=== PATIENT | male | born 1970 | race Caucasian/White ===

== ENCOUNTER 2019-01-15 00:04 | Emergency (ER) | payer OTHER ==
[2019-01-15] MEDS ORDERED: ONDANSETRON 4 MG/2 ML VIAL IVP ONE (00:08)
[2019-01-15] MEDS ORDERED: NS 1,000 ML IV ONE ×2 (00:08→02:39)
--- NOTE | 2019-01-15 00:08 | EDPHY ---
H & P Time Seen by Provider: 01/15/19 00:08 HPI/ROS: HPI CHIEF COMPLAINT: Abdominal pain nausea vomiting. HISTORY OF PRESENT ILLNESS: Very pleasant 48-year-old male otherwise healthy does have a history of asthma presents emergency room with abdominal pain. States abdominal pain started around 6 hr ago it is centrally located periumbilical. He has associated nausea with vomiting. No diarrhea. States he vomited 10 times. Mainly the [place] food he ate and cooked improved. Home. No other sick contacts at home. Significant other ate as well. She is not having any symptoms. Presents emergency room 09/07 periumbilical abdominal pain. Past Medical History: History of asthma. Past Surgical History: No abdominal surgeries. Social History: Denies drugs alcohol tobacco. Works as a psychologist. Family History: Noncontributory ROS REVIEW OF SYSTEMS: 10 Systems were reviewed and negative with the exception of the elements mentioned in the history of present illness. Exam Constitutional appears well nontoxic triage nursing summary reviewed, vital signs reviewed, awake/alert. Eyes normal conjunctivae and sclera, EOMI, PERRLA. HENT normal inspection, atraumatic, moist mucus membranes, no epistaxis, neck supple/ no meningismus, no raccoon eyes. Respiratory clear to auscultation bilaterally, normal breath sounds, no respiratory distress, no wheezing. Cardiovascular rate normal, regular rhythm, no murmur, no edema, distal pulses normal. Gastrointestinal mild tender palpation periumbilical, no rebound, no guarding , normal bowel sounds, no distension, no pulsatile mass. Genitourinary no CVA tenderness. Musculoskeletal no midline vertebral tenderness, full range of motion, no calf swelling, no tenderness of extremities, no meningismus, good pulses, neurovascularly intact. Skin pink, warm, & dry, no rash, skin atraumatic. Neurologic awake, alert and oriented x 3, AAOx3, moves all 4 extremities equally, motor intact, sensory intact, CN II-XII intact, normal cerebellar, normal vision, normal speech. Psychiatric normal mood/affect. Heme/Lymph/Immune no lymphadenopathy. Differential Diagnosis: Differential diagnosis includes but is not limited to and in no particular order: Bowel obstruction, appendicitis, gallbladder disease, diverticulitis, colitis, enteritis, perforated viscus, gastritis, GERD , esophagitis, urinary tract infection, pyelonephritis, kidney stones Medical Decision Making: Plan for this patient IV establishment IV fluid bolus , IV Dilaudid 1 mg for pain control, Zofran 4 mg for nausea, basic blood work, lactic, CT scan abdomen pelvis with IV contrast rule out acute appendicitis. Re-evaluation: CT scan abdomen pelvis with IV contrast faxed me by direct radiology results of 1:39 a.m.. This shows no acute intra-abdominal or pelvic abnormality there are multiple nondilated loops of fluid forearm small-bowel which can be seen and enteritis hyperdense contents in the gastric fundus adjacent to the gastric wall findings most likely represent ingested food content versus less likely gastric mass. No CT evidence of appendicitis. Re-eval: discussed CT results with patient, extensively, discussed enteritis, as well as Gastric abnormality. Recommend close follow up with GI for EGD/ Colonscopy. Patient agrees. Patient on re-eval feeling much better, able to tolerate PO. Abd soft nt. Not vomiting, would like to go home Return precautions discussed with him. He understands and is okay with this plan. Source: Patient - Medical/Surgical History Hx Asthma: Yes Other PMH: ASTHMA - Social History Smoking Status: Never smoked Constitutional: Initial Vital Signs Temperature (C) 36.3 C 01/15/19 00:16 Heart Rate 87 01/15/19 00:16 Respiratory Rate 16 01/15/19 00:16 Blood Pressure 153/115 H 01/15/19 00:16 O2 Sat (%) 97 01/15/19 00:16 O2 Delivery Mode Room Air Allergies/Adverse Reactions: No Known Allergies Allergy (Verified 01/15/19 00:17) Home Medications: Medication Instructions Recorded Albuterol 12/22/14 Medical Decision Making - Data Points Laboratory Results: Laboratory Results 01/15/19 00:24 01/15/19 00:24 Medications Given: Discontinued Medications Hydromorphone HCl (Dilaudid) 1 mg IVP EDNOW ONE Stop: 01/15/19 00:14 Last Admin: 01/15/19 00:25 Dose: 1 mg Sodium Chloride (Ns) 1,000 mls @ 0 mls/hr IV EDNOW ONE; Wide Open PRN Reason: Protocol Stop: 01/15/19 00:09 Last Admin: 01/15/19 00:25 Dose: 1,000 mls Sodium Chloride (Ns) 1,000 mls @ 0 mls/hr IV ONCE ONE PRN Reason: Wide Open Stop: 01/15/19 02:40 Last Admin: 01/15/19 02:53 Dose: 1,000 mls Ondansetron HCl (Zofran) 4 mg IVP EDNOW ONE Stop: 01/15/19 00:09 Last Admin: 01/15/19 00:24 Dose: 4 mg Departure - Departure Disposition: Home, Routine, Self-Care Clinical Impression: Enteritis Abdominal pain Qualifiers: Abdominal location: generalized Qualified Code(s): R10.84 - Generalized abdominal pain Condition: Good Instructions: Acute Abdominal Pain (ED), Enteritis (ED) Additional Instructions: 1. Falls diet over the next 24-48 hours. 2. Return to the emergency room if worsening abdominal pain, fever, vomiting. 3. I went over her CT scan with you. I do recommend you follow up with Gastroenterology for scope of her stomach as well as possibly a colonoscopy discuss this with them. Referrals: LUZ LAZO DR [Other] - As per Instructions Annmarie Boateng MD [Medical Doctor] - As per Instructions
[2019-01-15] MEDS ORDERED: HYDROmorphONE/DILAUDID 2 MG/ML INJ IVP ONE (00:13)
[2019-01-15] MEDS ORDERED: IOHEXOL 300 mgI/ML (OMNIPAQUE) 150 ML BTL IV ONE (00:19)
[2019-01-15] MEDS ORDERED: HYDROmorphONE/DILAUDID 1 MG/ML INJ ONE (00:19)
[2019-01-15 01:07] LABS: PLATELET COUNT 344 10^3/uL (150-400)
[2019-01-15 01:18] LABS: INR 0.87 (0.83-1.16); PROTIME(PATIENT) 12.1 SEC (12.0-15.0)
[2019-01-15 05:09] VITALS: BP 126/101
== END 2019-01-15 05:09 | disposition home or self-care (01) ==
DX: K52.9 Noninfective gastroenteritis and colitis, unspecified (principal); E86.9 Volume depletion, unspecified; J45.909 Unspecified asthma, uncomplicated
CPT/HCPCS: 96374; J1170; J2405; Q9967